=== PATIENT | female | born 1950 | race Caucasian/White ===

== ENCOUNTER → 2023-08-22 | Outpatient (CLI) | payer MEDICARE, SELFPAY ==
--- NOTE | 2023-08-22 06:26 | ECHOD_ITS ---
Reason For Study: MIR Procedure This was a 2D Doppler, Color Flow transthoracic echocardiogram. Exam performed in department. Left Ventricle Normal LV size. The estimated ejection fraction is 65 %. No evidence for diastolic dysfunction. No regional wall motion abnormalities noted. Right Ventricle Normal RV size. Normal systolic function. Atria Normal left atrium. Normal right atrium. No doppler evidence for ASD. Mitral Valve There is no mitral valve stenosis. Trivial mitral valve insufficiency. Tricuspid Valve There is no tricuspid stenosis. Unable to estimate RV systolic pressure due to insufficient tricuspid regurgitant envelope. Trivial tricuspid valve insufficiency. Aortic Valve Trisinus/trileaflet aortic valve. There is no aortic stenosis. Trivial aortic valve insufficiency. Pulmonic Valve There is no pulmonic valvular stenosis. No pulmonic valve insufficiency. Great Vessels Normal aortic root. Pericardium/Pleural No pericardial effusion. MMode/2D Measurements & Calculations LVIDd: 5.3 cm IVSd: 1.3 cm LVOT diam: 1.9 cm LVIDs: 3.5 cm LVPWd: 1.3 cm LVOT area: 2.8 cm2 RVDd: 2.7 cm FS: 34.7 % Ao root diam: 3.1 cm LAV(MOD-bp): 37.5 ml LVAd ap4: 22.6 cm2 LAV(MOD-bp) Indexed: 18.8 ml/m2 LVLd ap4: 7.0 cm LAV(MOD-sp2): 24.6 ml EDV(MOD-sp4): 61.9 ml LAV(MOD-sp4): 56.9 ml EDV(sp4-el): 61.8 ml LVAs ap4: 13.7 cm2 LVLs ap4: 6.2 cm ESV(MOD-sp4): 28.4 ml ESV(sp4-el): 26.0 ml EF(MOD-sp4): 54.1 % EF(sp4-el): 58.0 % LVAd ap2: 22.9 cm2 SV(MOD-sp4): 33.5 ml SV(MOD-sp2): 41.4 ml LVLd ap2: 7.3 cm EDV(MOD-sp2): 62.6 ml EDV(sp2-el): 60.7 ml LVAs ap2: 11.7 cm2 LVLs ap2: 6.2 cm ESV(MOD-sp2): 21.2 ml ESV(sp2-el): 18.7 ml EF(MOD-sp2): 66.1 % SV(sp4-el): 35.8 ml LA dimension(2D): 4.1 cm LA A4 area: 18.9 cm2 RA A4 area: 11.0 cm2 TAPSE: 2.0 cm Time Measurements MV dec time: 0.20 sec Doppler Measurements & Calculations MV E max darrian: 67.4 cm/sec Lat Peak E' Darrian: 8.3 cm/sec Med Peak E' Darrian: 4.5 cm/sec MV A max darrian: 72.9 cm/sec E/E' lat: 8.1 E/E' med: 14.8 MV E/A: 0.92 Ao V2 max: 206.8 cm/sec LV V1 max: 115.7 cm/sec MV dec slope: 339.3 cm/sec2 Ao max P.1 mmHg LV V1 max P.4 mmHg Ao V2 mean: 140.9 cm/sec LV V1 mean P.1 mmHg Ao mean P.2 mmHg LV V1 mean: 83.2 cm/sec Ao V2 VTI: 46.8 cm LV V1 VTI: 27.0 cm AV (velocity ratio): 0.58 HELGA(I,D): 1.6 cm2 HELGA(V,D): 1.6 cm2 SV(LVOT): 76.9 ml PA V2 max: 88.2 cm/sec TR max darrian: 264.6 cm/sec PA max PG (full): -0.05 mmHg TR max P.0 mmHg ECHO/Echo Complete Interpretation Summary The estimated ejection fraction is 65 %. No evidence for diastolic dysfunction. Trivial mitral valve insufficiency. Trivial aortic valve insufficiency. Ordering Physician: Concepcion Andrade Performed By: Mariya Vital RDCS and Student
--- NOTE | 2023-08-22 13:56 | STRESSREP_ITS ---
Stress Test Report Date: 08/22/2023 Procedure: Exercise tolerance test/imaging study Indications: Dyspnea on exertion Consent: Per the patient Procedure: The patient exercised on a Navi protocol for 3 minutes achieving a peak heart rate of 151 bpm (100% predicted maximal heart rate) with a peak blood pressure 200/90 mmHg and a peak MET capacity of 4.6 METs. The baseline ECG demonstrated normal sinus rhythm. The peak exercise ECG demonstrated sinus tachycardia with frequent PVCs. No definite significant ischemic ST-T changes. EKG during recovery revealed normal sinus rhythm [There were no cardiac dysrhythmias pretest, during exercise, or recovery]. The functional capacity was considered normal for age. There was [no complaint of chest discomfort during exercise or recovery]. The examination was discontinued secondary to dyspnea. Impression: 1. Technically adequate (percent predicted maximal heart rate greater than 85%) exercise tolerance test 2. Stress test is negative for exercise-induced EKG changes of ischemia 3. The test test is negative for exercise-induced chest pain 4. Functional capacity is normal for age 5. Nuclear images pending Myocardial perfusion imaging study: Technique: The patient was injected with [] mCi of technetium 99m Cardiolite and subsequently rest SPECT Cardiolite nuclear imaging was obtained in the horizontal long, vertical long, and short axis views. The patient exercised on a Navi protocol. Please see above for details. The patient was injected with [] mCi of technetium 99m Cardiolite and subsequently stress SPECT Cardiolite nuclear imaging was obtained in the horizontal long, vertical long, and short axis views. A gated Cardiolite study at peak stress was obtained. Interpretation: Rest and stress SPECT Cardiolite nuclear imaging status post realignment, normalization, and attenuation correction, demonstrates normal myocardial radioisotope uptake. The gated Cardiolite study demonstrates no significant regional wall motion abnormalities. The reported LVEF is 70%. Impression: 1. There is no evidence of significant ischemia or infarction. 2. The gated Cardiolite study reports an LVEF of 70%. This note was generated with [employer] software. It may contain incorrect words, spelling, and punctuation that were not noted in checking the note before signing.
== END | disposition home or self-care (01) ==
PROVIDERS: PCP Nurse Practitioner Family; Visit Provider Nurse Practitioner Family
DX: R06.09 Other forms of dyspnea (principal)
CPT/HCPCS: 78452; 93017; 93306; A9500; A4216

== ENCOUNTER → 2024-05-29 | Outpatient (CLI) | payer MEDICARE, SELFPAY ==
--- NOTE | 2024-05-29 11:34 | RAD_ITS ---
PROCEDURE: Pelvis radiographs, three views 05/29/2024 REASON FOR EXAM: PELVIC FRACTURE TECHNIQUE: Three views of the pelvis were obtained. COMPARISON: No prior studies are available. FINDINGS: Three views of the pelvis were obtained. Bones are osteopenic. Moderate degenerative changes in the lower lumbar spine. SI joints are intact. The proximal femurs are intact with mild degenerative changes in the hip joints. No displaced pelvic fracture is demonstrated. RAD/Pelvis 1 or 2 Views IMPRESSION: Osteopenia. No displaced pelvic or proximal femur fracture is demonstrated. Mild degenerative changes in the hip joints. If there are persistent symptoms or clinical concern, short-term follow-up MRI evaluation would be suggested. Reading Location: [facility]
== END | disposition home or self-care (01) ==
LOC: MTRAD 11:32
PROVIDERS: PCP Family Medicine; Referring Provider Family Medicine; Visit Provider Family Medicine
DX: S32.9XXA Fracture of unspecified parts of lumbosacral spine and pelvis, initial encounter for closed fracture (principal); X58.XXXA Exposure to other specified factors, initial encounter
CPT/HCPCS: 72170

== ENCOUNTER → 2024-06-04 | Outpatient (CLI) | payer MEDICARE, SELFPAY ==
[2024-06-04 16:28] LABS: Anion Gap 11 (5-15); BUN 15 mg/dL (4-19); BUN/Creat Ratio 17.8 RATIO (10-20); Calcium,Total 9.9 mg/dL (7.6-11.0); Carbon Dioxide 28.7 mmol/L (21.0-32.0); Chloride 102 mmol/L (98-108); Cholesterol 248 mg/dL (<=200); Creatinine, Serum 0.84 mg/dL (0.70-1.20); EST Glomerular Filtration Rate 74 (>60); Glucose 102 mg/dL (70-99); High Density Lipoprotein 51 mg/dL; Low Density Lipoprotein Calc. 170 mg/dL; Potassium 4.2 mmol/L (3.3-5.1); Sodium Level 142 mmol/L (133-145); Triglycerides 134 mg/dL; Very Low Density Lipoprotein 27 mg/dL (5-40); cholesterol:hdl ratio screen 4.85
== END | disposition home or self-care (01) ==
LOC: MTLAB 14:01
PROVIDERS: PCP Family Medicine; Referring Provider Family Medicine; Visit Provider Family Medicine
DX: Z00.00 Encounter for general adult medical examination without abnormal findings (principal)
CPT/HCPCS: 36415; 80048; 80061